=== PATIENT | female | born 1990 | race Caucasian/White ===

== ENCOUNTER 2016-10-29 06:30 | Emergency (ER) | payer OTHER | END 2016-10-29 09:05 | disposition home or self-care (01) | LOC: ER1 06:30 | DX: S61.411A Laceration without foreign body of right hand, initial encounter (principal); Z23 Encounter for immunization; Z88.0 Allergy status to penicillin; W01.198A Fall on same level from slipping, tripping and stumbling with subsequent striking against other object, initial encounter; Y92.009 Unspecified place in unspecified non-institutional (private) residence as the place of occurrence of the external cause | CPT/HCPCS: 12001; 73130; 90471; 90715; 99283 ==

== ENCOUNTER 2020-11-17 02:43 | Inpatient (IN) | payer OTHER ==
[~2020-11-17 02:43] MED LIST: COLACE 100MG C100 MG PO; IBUPROFEN600 MG PO; LORTAB 5-325 M1 EACH PO
[2020-11-17 03:20] LABS: HEMOGLOBIN 12.1 gm/dl (12.3-15.3); RED BLOOD COUNT 4.44 M/UL (4.00-5.10); WHITE BLOOD COUNT 14.7 K/UL (4.5-11.0)
[2020-11-18 06:01] LABS: HEMOGLOBIN 9.8 gm/dl (12.3-15.3)
[2020-11-18] MEDS ORDERED: IBUPROFEN800 MG PO (16:08)
[2020-11-18] MEDS ORDERED: COLACE100 MG PO (16:08)
[2020-11-18] MEDS ORDERED: PERCOCET 5/325 T1 EA PO (16:08)
== END 2020-11-18 16:35 | disposition home or self-care (01) | DRG 786 ==
LOC: GENOP 02:43 → OB 03:39
PROVIDERS: ADMIT Obstetrics & Gynecology
PROC: 10D00Z1 Extraction of Products of Conception, Low, Open Approach (ICD-10-PCS; principal; 2020-11-17 03:13)
DX: O30.043 Twin pregnancy, dichorionic/diamniotic, third trimester (principal); O60.14X0 Preterm labor third trimester with preterm delivery third trimester, not applicable or unspecified; Z3A.33 33 weeks gestation of pregnancy; Z37.0 Single live birth; Z20.822 Contact with and (suspected) exposure to COVID-19; O32.1XX0 Maternal care for breech presentation, not applicable or unspecified; O13.4 Gestational [pregnancy-induced] hypertension without significant proteinuria, complicating childbirth; Z88.1 Allergy status to other antibiotic agents; Z88.0 Allergy status to penicillin
CPT/HCPCS: 36415; 85014; 85018; 85025; C9113; J0595; J0690; J1170; J1580; J1885; J7120; U0002

== ENCOUNTER 2022-02-04 19:19 | Inpatient (IN) | payer OTHER ==
[~2022-02-04 19:19] MED LIST changes: +COLACE100 MG PO; +IBUPROFEN800 MG PO; +PERCOCET 5/325 T1 EA PO
[2022-02-04 20:14] LABS: HEMOGLOBIN 10.1 gm/dl (12.3-15.3); RED BLOOD COUNT 3.97 M/UL (4.00-5.10); WHITE BLOOD COUNT 12.3 K/UL (4.5-11.0)
[2022-02-04] MEDS ORDERED: HYDROCODON-ACE1 EAC6 PO (20:46)
[2022-02-04] MEDS ORDERED: IBUPROFEN600 MG PO (20:46)
[2022-02-04] MEDS ORDERED: COLACE 100MG C100 MG PO (20:46)
[2022-02-05 06:33] LABS: HEMOGLOBIN 10.1 gm/dl (12.3-15.3)
== END 2022-02-06 16:02 | disposition home or self-care (01) | DRG 788 ==
LOC: GENOP 19:19 → OB 19:53
PROVIDERS: ADMIT Obstetrics & Gynecology
PROC: 3E0234Z Introduction of Serum, Toxoid and Vaccine into Muscle, Percutaneous Approach (ICD-10-PCS; 2022-02-04)
PROC: 10D00Z1 Extraction of Products of Conception, Low, Open Approach (ICD-10-PCS; principal; 2022-02-04 21:07)
DX: O34.211 Maternal care for low transverse scar from previous cesarean delivery (principal); O99.334 Smoking (tobacco) complicating childbirth; F17.200 Nicotine dependence, unspecified, uncomplicated; O42.02 Full-term premature rupture of membranes, onset of labor within 24 hours of rupture; Z3A.38 38 weeks gestation of pregnancy; Z37.0 Single live birth; Z23 Encounter for immunization; Z82.49 Family history of ischemic heart disease and other diseases of the circulatory system; Z83.3 Family history of diabetes mellitus; Z88.1 Allergy status to other antibiotic agents; Z88.0 Allergy status to penicillin; Z28.310 Unvaccinated for COVID-19
CPT/HCPCS: 82800; 85014; 85018; 85025; 90471; 90472; 90686; 90707; 90715; C9113; G0008; J1580; J2274; J2405; J2590; J2765; J3010